=== PATIENT | male | born 1950 | race Caucasian/White ===

== ENCOUNTER 2023-04-01 11:26 | Outpatient (CLI) | payer MEDICARE ==
[~2023-04-01] VITALS: Ht 182.9 cm; Wt 111.4 kg
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
[2023-04-01] MEDS ORDERED: TMSL.4C PO (13:37)
[2023-04-01] MEDS ORDERED: LEVO100C4 PO (13:37)
[2023-04-01] MEDS ORDERED: ASPI-999 PO (13:37)
[2023-04-01] MEDS ORDERED: UBID200C16 PO (13:37)
[2023-04-01] MEDS ORDERED: OMEG100032 PO (13:37)
[2023-04-01] MEDS ORDERED: FAMO40TA6 PO (13:37)
[2023-04-01] MEDS ORDERED: ACET-9 PO (13:37)
[2023-04-01] MEDS ORDERED: DULO30CA49 PO (13:37)
[2023-04-01] MEDS ORDERED: TRAM50TA3 PO (13:37)
[2023-04-01] MEDS ORDERED: SIMV40TA25 PO (13:37)
== END 2023-04-01 13:57 | disposition home or self-care (01) ==
LOC: PREOP 11:26
PROVIDERS: ATTEND Orthopaedic Surgery
DX: Z01.818 Encounter for other preprocedural examination (principal)

== ENCOUNTER 2023-04-07 09:09 | Day surgery (SDC) | payer MEDICARE ==
[2023-04-07] VITALS (12 sets, daily range): BP systolic 96–136; BP diastolic 57–80
[~2023-04-07] VITALS: Ht 182.9 cm; Wt 111.4 kg
[~2023-04-07 09:09] MED LIST: ACET-9 PO; ASPI-999 PO; DULO30CA49 PO; FAMO40TA6 PO; LEVO100C4 PO; OMEG100032 PO; SIMV40TA25 PO; TMSL.4C PO; TRAM50TA3 PO; UBID200C16 PO
--- NOTE | 2023-04-07 09:22 | Progress Note-Pre Operative ---
Pre-Operative Progress Note Date of Available H&P: Apr 01, 2023 Date H&P Reviewed: Apr 07, 2023 Time H&P Reviewed: 09:21 Changes from last HP none Pre-Operative Diagnosis: right medial meniscus tear and chondromalacia KENDALL PEREZ MD Apr 07, 2023 09:22
--- NOTE | 2023-04-07 09:23 | Progress Note-Post Operative ---
Post-Operative Progess Note Surgeon (s)/Dumper Mold Cleaner (s) Surgeon KENDALL PEREZ MD Dumper Mold Cleaner: Torsten Beck Pre-Operative Diagnosis right medial meniscus tear and chondromalacia Post-Operative Diagnosis right medial and lateral meniscus tears and chondromalacia of the lateral tibial plateau Procedure & Operative Findings Date of Procedure 04/07/23 Procedure Performed/Findings right knee arthroscopic partial medial and lateral meniscectomies and chondroplasty of the lateral tibial plateau Anesthesia Type GETA Estimated Blood Loss Estimated blood loss (mL): minimal Specimens/Packing Specimens Removed none Packing: none KENDALL PEREZ MD Apr 07, 2023 09:23
[2023-04-07] MEDS ORDERED: LACTATED RINGERS 1,000 ML 1,000 ML IV PRN (09:30)
[2023-04-07] MEDS ORDERED: ceFAZolin INJECTION 2,000 MG in NS (IVPB) 50 ML 50 ML IV ONE (09:30)
[2023-04-07] MEDS ORDERED: HYDROcodone/ACETAMINOPHEN 7.5 MG/325 MG TABLET PO PRN (11:15)
[2023-04-07] MEDS ORDERED: BUPIVACAINE 0.25% 30 ML VIAL ONE (11:23)
[2023-04-07] MEDS ORDERED: morphine PRESERVATIVE free 10 MG/10 ML AMP ONE (11:23)
[2023-04-07] MEDS ORDERED: MIDAZOLAM INJ 2 MG/2 ML VIAL ONE (12:42)
[2023-04-07] MEDS ORDERED: BUPIVACAINE 0.5% 30 ML VIAL ONE (13:05)
[2023-04-07] MEDS ORDERED: ONDANSETRON INJECTION 4 MG/2 ML (SDV) ONE (13:22)
--- NOTE | 2023-04-07 13:40 | Anesthesia-Regional Post-Op ---
Regional Patient Condition Mental Status: Alert, Oriented x3 Circulation: Same as Pre-Op Headache: Absent Sensation: Full Recovery Motor Block: Absent Post Op Complications Complications None Follow Up Care/Instructions Patient Instructions None needed. Anesthesia/Patient Condition Patient is doing well, no complaints, stable vital signs, no apparent adverse anesthesia problems. No complications reported per nursing. DION HYMAN CRNA Apr 07, 2023 13:40
[2023-04-07] MEDS ORDERED: ONDANSETRON INJECTION 4 MG/2 ML (SDV) IVP PRN (13:45)
[2023-04-07] MEDS ORDERED: MEPERIDINE INJ 50 MG/ML VIAL IVP ONE (13:45)
[2023-04-07] MEDS ORDERED: fentaNYL INJECTION 100 MCG/2 ML VIAL IVP ONE (13:45)
[2023-04-07] MEDS ORDERED: morphine INJ 10 MG/ML 1ML (SYR OR VIAL) IVP ONE (13:45)
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
== END 2023-04-07 19:00 | disposition home or self-care (01) ==
LOC: SDC 09:09
PROVIDERS: ATTEND Orthopaedic Surgery
DX: S83.241A Other tear of medial meniscus, current injury, right knee, initial encounter (principal); S83.281A Other tear of lateral meniscus, current injury, right knee, initial encounter; M94.261 Chondromalacia, right knee; E66.9 Obesity, unspecified; Z68.33 Body mass index [BMI] 33.0-33.9, adult
CPT/HCPCS: 87081

== ENCOUNTER → 2023-05-07 | Outpatient (CLI) | payer OTHER, MEDICARE ==
--- NOTE | 2023-05-07 11:45 | Diagnostic Imaging Report ---
PROCEDURE: US right lower extremity venous. TECHNIQUE: Multiple real-time grayscale images were obtained over the right lower extremity in various projections. Additional spectral analysis and color Doppler duplex images were also obtained. DATE: May 07, 2023. INDICATION: 73-year-old male, right lower extremity pain and swelling. COMPARISON: None. FINDINGS: The right common femoral vein, right superficial femoral vein, and right popliteal vein are all compressible with normal flow. The imaged portions of the right greater saphenous vein and deep femoral vein are patent. The right posterior tibial vein is patent. There is no well-demonstrated blood flow in the right peroneal vein. IMPRESSION: 1. No demonstrated blood flow in the right peroneal vein which may potentially reflect an occlusive thrombus at this level. 2. Additional imaged right lower extremity venous vasculature is patent. Dictated by: Dictated on workstation # [id number]
== END ==
LOC: RAD 10:37
PROVIDERS: ATTEND Orthopaedic Surgery
DX: I82.4Z1 Acute embolism and thrombosis of unspecified deep veins of right distal lower extremity (principal)